=== PATIENT | female | born 1990 | race African-American/Black ===

== ENCOUNTER 2025-05-17 14:14 | Outpatient (CLI) | payer BC ==
[2025-05-17 14:39] LABS: Hematocrit 39.9 % (36.0-46.0); Hemoglobin 13.5 g/dL (12.2-16.2); Mean Corpuscular Hemoglobin 31.3 pg (28.0-32.0); Mean Corpuscular Volume 92.5 fL (80.0-100.0); Nucleated Red Blood Cells % 0.0 %
[2025-05-17 15:12] LABS: Urine Protein, UAD Negative (Negative)
[2025-05-17 15:19] LABS: Alanine Aminotransferase 15 U/L (7-40); Albumin 4.6 g/dL (3.2-4.8); Alkaline Phosphatase 54 U/L (46-116); Anion Gap 10 (5-15); BUN/Creatinine Ratio 10.5 (10.0-20.0); Bilirubin, Total 0.2 mg/dL (0.2-1.0); Blood Urea Nitrogen 10 mg/dL (9-23); Calcium 9.6 mg/dL (8.7-10.4); Carbon Dioxide 26 mmol/L (20-31); Chloride 105 mmol/L (98-107); Cholesterol 163 mg/dL (< 200); Glucose 92 mg/dL (74-106); HDL Cholesterol 46 mg/dL (40-59); Potassium 3.6 mmol/L (3.5-5.1); Sodium 141 mmol/L (136-145); Total Iron Binding Capacity 325.0 ug/dL (250-425); Total Protein 7.6 g/dL (5.7-8.2); Triglycerides 104 mg/dL (< 150)
[2025-05-17 15:22] LABS: Iron 49.0 ug/dL (50-170)
[2025-05-17 15:23] LABS: Free T4 (Free Thyroxine) 1.1 ng/dL (0.89-1.76)
== END 2025-05-17 17:00 | disposition home or self-care (01) ==
LOC: LAB 14:14
PROVIDERS: ATTEND Family Medicine
DX: E66.9 Obesity, unspecified (principal); R03.0 Elevated blood-pressure reading, without diagnosis of hypertension; Z00.00 Encounter for general adult medical examination without abnormal findings; Z68.35 Body mass index [BMI] 35.0-35.9, adult
CPT/HCPCS: 36415; 80053; 80061; 81001; 82306; 82607; 82670; 82672; 82746; 83036; 83540; 83550; 84439; 84443; 85025